=== PATIENT | female | born 1995 | race American Indian/Alaskan Native ===

== ENCOUNTER 2017-01-14 18:12 | Emergency (ER) | payer BC ==
[2017-01-14 18:27] VITALS: BP 144/93
== END 2017-01-14 23:15 | disposition left against medical advice (07) ==
LOC: ED 18:12
DX: O26.891 Other specified pregnancy related conditions, first trimester (principal); R51 Headache; Z53.21 Procedure and treatment not carried out due to patient leaving prior to being seen by health care provider

== ENCOUNTER 2017-10-14 09:00 | Emergency (ER) | payer BC ==
[2017-10-14 09:21] VITALS: BP 131/73
== END 2017-10-14 11:00 | disposition left against medical advice (07) ==
LOC: ED 09:00
DX: L02.412 Cutaneous abscess of left axilla (principal); Z53.21 Procedure and treatment not carried out due to patient leaving prior to being seen by health care provider